=== PATIENT | female | born 1990 | race Caucasian/White ===

== ENCOUNTER 2016-05-28 15:07 | Emergency (ER) | payer OTHER ==
[2016-05-28 16:08] LABS: BILIRUBIN NEGATIVE (NEGATIVE); BLOOD NEGATIVE Ery/uL (NEGATIVE); COLOR YELLOW (YELLOW); GLUCOSE (U) NORMAL (NORMAL); KETONE (U) 1+ (SMALL) mg/dL (NEGATIVE); LEUKOCYTES NEGATIVE Leu/uL (NEGATIVE); NITRITE POSITIVE (NEGATIVE); PROTEIN TRACE (LOW) mg/dL (NEGATIVE); SPECIFIC GRAVITY 1.025 (1.001-1.030); UROBILINOGEN 0.2 mg/dL (0.2-1.0)
[2016-05-28 16:13] LABS: CLARITY HAZY (CLEAR)
[2016-05-28 16:17] LABS: BACTERIA 4+
[2016-05-28 16:22] LABS: BASOPHIL 0.7 % (0-2); HCT 42.1 % (37.0-47.0); HGB 13.7 g/dl (12.5-16.0); LYMPHOCYTE 23.4 % (15-48); MCH 28.5 pg (25.0-31.0); MCHC 32.5 g/dL (32.0-36.0); MCV 87.7 fL (78.0-100.0); MONOCYTE 9.1 % (0-12); MPV 9.5 fL (6.0-9.5); NEUTROPHIL 63.8 % (41-80); PLT 503 K/uL (150-400); RDW 16.6 % (11.5-14.0); WBC 8.3 K/uL (4.0-10.5)
[2016-05-28 16:32] LABS: ALBUMIN 4.7 g/dL (3.5-5.0); BILIRUBIN - TOTAL 0.8 mg/dL (0.1-1.0); CREATININE 0.5 mg/dL (0.5-1.0); GLOBULIN (CALCULATION) 2.9 g/dL (2.2-4.2); POTASSIUM 3.4 mmol/L (3.5-5.1); TOTAL PROTEIN 7.6 g/dL (6.4-8.3)
== END 2016-05-28 18:47 | disposition home or self-care (01) ==
LOC: FER 15:07
PROVIDERS: Nurse Practitioner
DX: N10 Acute pyelonephritis (principal)
CPT/HCPCS: 36415; 80053; 81001; 82150; 83690; 85025; 87076; 87088; 87186; J2405

== ENCOUNTER 2021-07-21 20:27 | Emergency (ER) | payer OTHER ==
[~2021-07-21 20:27] MED LIST: AZITHROMYCIN250 MG PO; FLORASTOR250 MG PO; HYDROCODONE-CH473 ML PO; LEVAQUIN500 MG PO; MUCINEX 600MG600 MG PO; NORCO 5-325 TA1 EACH PO; PERCOCET 5-3251 EACH PO; PREDNISONE5 MG PO; TAMIFLU 75MG CA75 MG PO; VENTOLIN HFA IN18 GM INH
[2021-07-21 22:16] LABS: BASOPHIL 0.8 % (0-2); EOSINOPHIL 1.2 % (0-5); HCT 41.2 % (37.0-47.0); HGB 13.7 g/dl (12.5-16.0); LYMPHOCYTE 26.2 % (15-48); MCH 32.1 pg (25.0-31.0); MCHC 33.3 g/dL (32.0-36.0); MCV 96.5 fL (78.0-100.0); MPV 9.8 fL (6.0-9.5); NEUTROPHIL 64.4 % (41-80); NRBC 0; PLT 327 K/uL (150-400); RBC 4.27 M/uL (4.20-5.40); RDW 13.3 % (11.5-14.0); WBC 11.2 K/uL (4.0-10.5)
[2021-07-21 22:33] LABS: BUN/CREAT RATIO (CALC) 22.7 RATIO; CREATININE 0.66 mg/dL (0.51-0.95); POTASSIUM 4.9 mmol/L (3.5-5.1)
[2021-07-22] MEDS ORDERED: NAPROXEN500 MG PO (00:32)
[2021-07-22] MEDS ORDERED: FLEXERIL5 MG PO (00:32)
[2021-07-22] MEDS ORDERED: ULTRAM50 MG PO (00:32)
== END 2021-07-22 00:53 | disposition home or self-care (01) ==
LOC: FER 20:27
PROVIDERS: Nurse Practitioner Family
DX: R10.9 Unspecified abdominal pain (principal); F17.210 Nicotine dependence, cigarettes, uncomplicated
CPT/HCPCS: 36415; 72128; 72131; 80048; 85025; 96372; J1100; J1170; J1885; J7030; Q9967